=== PATIENT | male | born 1965 | race Caucasian/White ===

== ENCOUNTER 2021-05-02 10:59 | Day surgery (SDC) | payer OTHER ==
[~2021-05-02] VITALS: Ht 180.3 cm; Wt 50.0 kg
[~2021-05-02 10:59] MED LIST: HYDROmorphone 2 MG/ML VIAL IVP PRN; IV RINGERS,LACTATED 1000ML 1,000 ML IV SCH; MORPHINE SULFATE 2 MG/ML INJ. IVP PRN; PROCHLORPERAZINE 10 MG/2 ML VIAL. IVP PRN; ceFAZolin SODIUM IV Push 1 GM VIAL. IVP PRN; fentaNYL PF VIAL 100 MCG/2 ML VIAL IVP PRN
[2021-05-02] MEDS ORDERED: CHLORHEXIDINE 0.12% 15 ML MOUTHWASH. SWSP ONE (11:00)
[2021-05-02] MEDS ORDERED: PARO30TA3 PO (11:20)
[2021-05-02] MEDS ORDERED: PROM25TA10 PO (11:20)
[2021-05-02] MEDS ORDERED: ALBU2.5V8 IH (11:20)
[2021-05-02] MEDS ORDERED: FLUT9.9S NS (11:20)
[2021-05-02] MEDS ORDERED: OLAN2.5T3 PO (11:20)
[2021-05-02] MEDS ORDERED: ACET325T21 PO (11:20)
[2021-05-02] MEDS ORDERED: LACT1CAP37 PO (11:20)
[2021-05-02] MEDS ORDERED: MAGN200T7 PO (11:20)
[2021-05-02] MEDS ORDERED: BUDE10.2 IH (11:20)
[2021-05-02] MEDS ORDERED: GUAI400T78 PO (11:20)
[2021-05-02] MEDS ORDERED: NAPR-514 PO (11:20)
[2021-05-02] MEDS ORDERED: TIOT18CA IH (11:20)
[2021-05-02 11:32] VITALS: BP 100/56
[2021-05-02] MEDS ORDERED: GELATIN SPONGE SIZE 100. ONE (12:00)
[2021-05-02] MEDS ORDERED: CHLORHEXIDINE 0.12% 15 ML MOUTHWASH. ONE (12:00)
[2021-05-02] MEDS ORDERED: BUPIVACAINE-EPI 0.5% 30 ML VIAL KIT. ONE (12:00)
[2021-05-02] MEDS ORDERED: fentaNYL PF VIAL 100 MCG/2 ML VIAL ONE (12:35)
[2021-05-02] MEDS ORDERED: SUCCINYLCHOLINE 200 MG/10 ML VIAL. ONE (12:35)
[2021-05-02] MEDS ORDERED: DEXAMETHASONE SOD PHOS 4 MG/ML VIAL ONE (12:35)
[2021-05-02] MEDS ORDERED: FAMOTIDINE 20 MG/2 ML VIAL ONE (12:35)
--- NOTE | 2021-05-02 13:51 | PDOC4 ---
OPERATIVE NOTE Date: Date: May 02, 2021 Pre-Op Diagnosis: COPD Caries, non restorable teeth # 20,21,22,23,24,25,26,27,28,29,30 Post-Op Diagnosis: same Procedure Performed: Surgical removal of Caries, non restorable teeth # 20,21,22,23,24,25,26,27,28,29,30 Alveoloplasty, LR & LL Surgeon: card Anesthesia Type: hapgood Blood Loss: 20 Specimans Obtained: teeth disposed of in OR Findings: see dictation Complications: none Operative Note: see dictation CARDHEBER DMD May 02, 2021 13:51
[2021-05-02 14:14] VITALS: BP 154/68
--- NOTE | 2021-05-02 14:25 | OP ---
DATE OF SURGERY: 05/02/2021 SERVICE: surgery aid. ATTENDING PHYSICIAN: Trevon Bradley DMD BRIEF HISTORY: The patient is a resident at the [facility], [place]. He is a 55-year-old male who is suffering with COPD and painful nonrestorable dentition. Given his COPD, he is a poor candidate for management in a routine fashion in our clinic and given the extent of treatment, his case was escalated to work for care in the OR. History and physical was performed in our clinic. A permit was obtained. The patient was scheduled for treatment at [facility], prescriptions and pretreatment planning were completed. ESTIMATED BLOOD LOSS: Approximately 20 mL. DRAINS PLACED: None. SPECIMEN SENT: None. Teeth were disposed of in the OR. COMPLICATIONS: No complications noted at the time of surgery. OPERATIVE DESCRIPTION: After the history and physical was updated in the preoperative holding area, the patient was transported by the Anesthesia to the operating suite, placed in the supine position. General anesthesia was induced. The patient was then intubated with an oral intubation, which was secured in the upper right face without complication. The time-out was initiated by surgical staff and all perioperative staff was in agreeance. A moistened throat pack was placed and local anesthesia in the form of 0.5% Marcaine, 1:200,000 epinephrine was administered. The lower right, lower left quadrants were treated. A bite block was placed to stabilize the temporomandibular joint. A 15 blade was utilized to reflect a full-thickness mucoperiosteal flap with the aid of a periosteal elevator. Tooth was then luxated, elevated and extracted without complication. The extraction sites were then curetted. All bony undercuts were then removed, lower right, lower left with a rongeur. All teeth were filed with the bone file and smoothed to digital manipulation. The sites were then lavaged with copious normal sterile saline. Site was packed with Gelfoam and oversewn with 3-0 chromic gut sutures in a running locked fashion. The oral cavity was then lavaged and suctioned. The moistened throat pack was removed. An OG was passed and the stomach was decompressed. The patient was then returned to the care of Anesthesia where he was awakened and extubated without complication and transported to the PACU in stable condition. ROSEMARIE DR: Deloris TID: [id number]
== END 2021-05-02 14:30 | disposition home or self-care (01) ==
LOC: SURG 10:59
PROVIDERS: ATTEND Dentist Oral and Maxillofacial Surgery
DX: K02.63 Dental caries on smooth surface penetrating into pulp (principal); J44.9 Chronic obstructive pulmonary disease, unspecified; Z87.891 Personal history of nicotine dependence; Z79.899 Other long term (current) drug therapy; Z98.890 Other specified postprocedural states; Z20.822 Contact with and (suspected) exposure to COVID-19
CPT/HCPCS: 41899; 87426; A4213; A4930; J0330; J0690; J1100; J3010; J3490; A4657